=== PATIENT | male | born 1950 | race Caucasian/White ===

== ENCOUNTER 2021-03-18 08:41 | Inpatient (IN) | payer OTHER, BC, SELFPAY ==
[~2021-03-18] VITALS: Ht 177.8 cm; Wt 65.8 kg
[2021-03-18 08:45] VITALS: BP 140/82
[2021-03-18] MEDS ORDERED: NACL 0.9% 1,000 ML IV ONE (08:50)
[2021-03-18] MEDS ORDERED: KETOROLAC 30 MG/ML VIAL IVP ONE (08:50)
[2021-03-18] MEDS ORDERED: MORPHINE SULFATE 4 MG/ML SYR IVP ONE (09:15)
[2021-03-18 10:07] LABS: BASOPHILS % (AUTO) 0.1 % (0.0-2.0); EOSINOPHILS % (AUTO) 0.2 % (0.0-4.0); HEMATOCRIT 27.6 % (36-52); HEMOGLOBIN 9.2 g/dL (12.0-18.0); LYMPHOCYTES # (AUTO) 0.4 K/uL (2.0-11.5); LYMPHOCYTES % (AUTO) 5.1 % (20.5-51.1); MEAN CORPUSCULAR HEMOGLOBIN 27 pg (27-31); MEAN CORPUSCULAR HGB CONC 33 g/dL (33-37); MEAN CORPUSCULAR VOLUME 80.5 fL (80-94); MONOCYTES # (AUTO) 0.7 K/uL (0.8-1.0); MONOCYTES % (AUTO) 7.9 % (1.7-9.3); NEUTROPHILS # (AUTO) 7.3 K/uL (1.8-7.7); NEUTROPHILS % (AUTO) 86.7 % (42.2-75.2); PLATELET COUNT (AUTO) 245 K/uL (140-450); RED BLOOD CELL COUNT(AUTO) 3.43 MIL/uL (4.20-6.10); RED CELL DISTRIBUTION WIDTH 15.9 % (11.6-13.7); WHITE BLOOD COUNT (AUTO) 8.4 K/uL (4.8-10.8)
[2021-03-18 10:16] LABS: ANION GAP 13.3 (8-16); CARBON DIOXIDE 28.6 mmol/L (21-32); CHLORIDE 99 mmol/L (98-107); CREATININE 0.8 mg/dL (0.6-1.3); GLUCOSE 98 mg/dL (74-106); POTASSIUM 3.9 mmol/L (3.5-5.1); SODIUM SERUM 137 mmol/L (136-145); UREA NITROGEN, BLOOD 17 mg/dL (7-18)
[2021-03-18 10:30] LABS: MAGNESIUM 1.8 mg/dL (1.8-2.4); PHOSPHORUS 3.9 mg/dL (2.5-4.9); THYROID STIMULATING HORMONE 1.53 uIU/mL (0.34-3.74)
[2021-03-18] MEDS ORDERED: SERT100T PO (11:29)
[2021-03-18] MEDS ORDERED: TAMS0.4C96 PO (11:29)
[2021-03-18] MEDS ORDERED: cefTRIAXone 2,000 MG in DEXTROSE 5% 100 ML IV ONE (12:55)
[2021-03-18] MEDS ORDERED: cefTRIAXone 2,000 MG VIAL ONE (12:58)
[2021-03-18] MEDS ORDERED: MAG SULF 2000 MG/WATER PREMIX 50 ML IV PRN (14:00)
[2021-03-18] MEDS ORDERED: POTASSIUM CHLORIDE 10 MEQ TABER PO PRN (14:00)
[2021-03-18] MEDS ORDERED: ZOLPIDEM 5 MG TAB PO PRN (14:00)
[2021-03-18] MEDS ORDERED: DOCUSATE SODIUM 100 MG GELCAP PO PRN (14:00)
[2021-03-18] MEDS ORDERED: ONDANSETRON 4 MG/2 ML VIAL IVP PRN (14:00)
[2021-03-18] MEDS ORDERED: SODIUM PHOS / POTASSIUM PHOS 1 PKT PDR PO PRN (14:00)
[2021-03-18] MEDS ORDERED: HYDROcodone/APAP 5/325 MG 1 TAB TAB PO PRN (14:00)
[2021-03-18] MEDS: NACL 0.9% 1,000 ML IV SCH (14:40)
[2021-03-18 15:52] LABS: APPEARANCE,URINE CLEAR (CLEAR); BILIRUBIN,URINE 1+ (NEGATIVE); BLOOD, URINE TRACE-I (NEGATIVE); COLOR,URINE YELLOW (YELLOW); LEUKOCYTE ESTERASE ,URINE NEGATIVE (NEGATIVE); NITRITE, URINE NEGATIVE (NEGATIVE); UGLUCOSE NEGATIVE (NEGATIVE)
[2021-03-18 16:09] LABS: THYROID STIMULATING HORMONE 1.87 uIU/mL (0.34-3.74)
[2021-03-18 16:26] LABS: RBC,URINE 0-5 /HPF (0-5); WBC,URINE NONE SEEN /HPF (0-5)
[2021-03-18] MEDS: MORPHINE SULFATE 2 MG/ML SYR IVP PRN (19:15)
[2021-03-18] MEDS: SERTRALINE 50 MG TAB PO SCH (21:27)
[2021-03-18 22:20] VITALS: BP 131/67
[2021-03-19] MEDS: MORPHINE SULFATE 2 MG/ML SYR IVP PRN ×2 (00:23→16:42)
[2021-03-19] MEDS: NACL 0.9% 1,000 ML IV SCH ×3 (00:24→20:00)
[2021-03-19 04:00] VITALS: BP 116/66
[2021-03-19 06:14] LABS: BASOPHILS % (AUTO) 0.1 % (0.0-2.0); EOSINOPHILS # (AUTO) 0.1 K/uL (0-0.4); EOSINOPHILS % (AUTO) 0.8 % (0.0-4.0); HEMATOCRIT 23.9 % (36-52); LYMPHOCYTES # (AUTO) 0.5 K/uL (2.0-11.5); LYMPHOCYTES % (AUTO) 8.3 % (20.5-51.1); MEAN CORPUSCULAR HEMOGLOBIN 27 pg (27-31); MEAN CORPUSCULAR HGB CONC 34 g/dL (33-37); MEAN CORPUSCULAR VOLUME 80.7 fL (80-94); MONOCYTES # (AUTO) 0.6 K/uL (0.8-1.0); MONOCYTES % (AUTO) 8.7 % (1.7-9.3); NEUTROPHILS # (AUTO) 5.4 K/uL (1.8-7.7); NEUTROPHILS % (AUTO) 82.1 % (42.2-75.2); PLATELET COUNT (AUTO) 221 K/uL (140-450); RED BLOOD CELL COUNT(AUTO) 2.96 MIL/uL (4.20-6.10); RED CELL DISTRIBUTION WIDTH 15.7 % (11.6-13.7); WHITE BLOOD COUNT (AUTO) 6.6 K/uL (4.8-10.8)
[2021-03-19 06:32] LABS: ALBUMIN 2.2 g/dL (3.4-5.0); ASPARTATE AMINOTRANSFERASE 57 U/L (15-37); CARBON DIOXIDE 27.7 mmol/L (21-32); CHLORIDE 104 mmol/L (98-107); CREATININE 0.7 mg/dL (0.6-1.3); GLUCOSE 109 mg/dL (74-106); MAGNESIUM 1.6 mg/dL (1.8-2.4); POTASSIUM 3.7 mmol/L (3.5-5.1); SODIUM SERUM 139 mmol/L (136-145); TOTAL BILIRUBIN 0.4 mg/dL (0.0-1.0); UREA NITROGEN, BLOOD 15 mg/dL (7-18)
[2021-03-19 08:00] VITALS: BP 121/80
[2021-03-19] MEDS: TAMSULOSIN 0.4 MG CAP PO SCH (10:37)
[2021-03-19 16:00] VITALS: BP 108/68
[2021-03-19] MEDS: SERTRALINE 50 MG TAB PO SCH (21:44)
[2021-03-20] MEDS: MORPHINE SULFATE 2 MG/ML SYR IVP PRN (03:20)
[2021-03-20 04:00] VITALS: BP 115/70
[2021-03-20] MEDS: NACL 0.9% 1,000 ML IV SCH ×3 (06:00→21:20)
[2021-03-20 06:17] LABS: BASOPHILS % (AUTO) 0.2 % (0.0-2.0); EOSINOPHILS # (AUTO) 0.2 K/uL (0-0.4); EOSINOPHILS % (AUTO) 2.6 % (0.0-4.0); HEMOGLOBIN 8.8 g/dL (12.0-18.0); LYMPHOCYTES # (AUTO) 1.2 K/uL (2.0-11.5); LYMPHOCYTES % (AUTO) 17.8 % (20.5-51.1); MEAN CORPUSCULAR HEMOGLOBIN 27 pg (27-31); MEAN CORPUSCULAR HGB CONC 33 g/dL (33-37); MEAN CORPUSCULAR VOLUME 81.7 fL (80-94); MONOCYTES # (AUTO) 0.7 K/uL (0.8-1.0); MONOCYTES % (AUTO) 10.4 % (1.7-9.3); NEUTROPHILS # (AUTO) 4.5 K/uL (1.8-7.7); PLATELET COUNT (AUTO) 263 K/uL (140-450); RED CELL DISTRIBUTION WIDTH 15.6 % (11.6-13.7); WHITE BLOOD COUNT (AUTO) 6.5 K/uL (4.8-10.8)
[2021-03-20 06:47] LABS: ALBUMIN 2.5 g/dL (3.4-5.0); ANION GAP 8.9 (8-16); ASPARTATE AMINOTRANSFERASE 39 U/L (15-37); CARBON DIOXIDE 29.6 mmol/L (21-32); CHLORIDE 101 mmol/L (98-107); CREATININE 0.9 mg/dL (0.6-1.3); GLUCOSE 122 mg/dL (74-106); MAGNESIUM 1.6 mg/dL (1.8-2.4); POTASSIUM 3.5 mmol/L (3.5-5.1); SODIUM SERUM 136 mmol/L (136-145); TOTAL BILIRUBIN 0.4 mg/dL (0.0-1.0); UREA NITROGEN, BLOOD 13 mg/dL (7-18)
[2021-03-20] MEDS: TAMSULOSIN 0.4 MG CAP PO SCH (08:36)
[2021-03-20] MEDS: ACETAMINOPHEN 325 MG TAB PO PRN ×2 (10:43→18:05)
[2021-03-20 12:00] VITALS: BP 129/73
[2021-03-20 20:00] VITALS: BP 125/68
[2021-03-20] MEDS: SERTRALINE 50 MG TAB PO SCH (20:17)
[2021-03-20 21:58] LABS: FOLIC ACID 11.8 ng/mL (>3.0)
[2021-03-20] MEDS ORDERED: VANCOMYCIN PER PHARMACY MC PRN (22:10)
[2021-03-21] MEDS ORDERED: VANCOMYCIN 1,000 MG VIAL ONE (00:52)
[2021-03-21] MEDS ORDERED: VANCOMYCIN 1GM/DEXT 5% PREMIX 200 ML IV SCH (01:00)
[2021-03-21] MEDS: NACL 0.9% 1,000 ML IV SCH ×3 (02:00→22:00)
[2021-03-21] MEDS: MORPHINE SULFATE 2 MG/ML SYR IVP PRN ×3 (03:28→16:16)
[2021-03-21 03:30] VITALS: BP 137/71
[2021-03-21 06:44] LABS: ALBUMIN 2.1 g/dL (3.4-5.0); ANION GAP 9.6 (8-16); ASPARTATE AMINOTRANSFERASE 26 U/L (15-37); BASOPHILS % (AUTO) 0.2 % (0.0-2.0); CARBON DIOXIDE 28.8 mmol/L (21-32); CHLORIDE 104 mmol/L (98-107); CREATININE 0.7 mg/dL (0.6-1.3); EOSINOPHILS # (AUTO) 0.2 K/uL (0-0.4); EOSINOPHILS % (AUTO) 3.5 % (0.0-4.0); GLUCOSE 121 mg/dL (74-106); HEMATOCRIT 24.2 % (36-52); HEMOGLOBIN 8.1 g/dL (12.0-18.0); LYMPHOCYTES # (AUTO) 0.5 K/uL (2.0-11.5); LYMPHOCYTES % (AUTO) 11.9 % (20.5-51.1); MAGNESIUM 1.4 mg/dL (1.8-2.4); MEAN CORPUSCULAR HEMOGLOBIN 27 pg (27-31); MEAN CORPUSCULAR HGB CONC 34 g/dL (33-37); MEAN CORPUSCULAR VOLUME 80.6 fL (80-94); MONOCYTES # (AUTO) 0.4 K/uL (0.8-1.0); MONOCYTES % (AUTO) 9.4 % (1.7-9.3); NEUTROPHILS # (AUTO) 3.4 K/uL (1.8-7.7); PLATELET COUNT (AUTO) 225 K/uL (140-450); POTASSIUM 3.4 mmol/L (3.5-5.1); RED CELL DISTRIBUTION WIDTH 15.8 % (11.6-13.7); SODIUM SERUM 139 mmol/L (136-145); TOTAL BILIRUBIN 0.3 mg/dL (0.0-1.0); UREA NITROGEN, BLOOD 13 mg/dL (7-18); WHITE BLOOD COUNT (AUTO) 4.6 K/uL (4.8-10.8)
[2021-03-21 08:00] VITALS: BP 132/71
[2021-03-21] MEDS: TAMSULOSIN 0.4 MG CAP PO SCH (09:27)
[2021-03-21 10:06] LABS: IMMUNOGLOBULIN M 58 mg/dL (15-143)
[2021-03-21 11:43] LABS: IMMUNOGLOBULIN A 51 mg/dL (70 - 400); IMMUNOGLOBULIN G 523 mg/dL (700 - 1600)
[2021-03-21] MEDS: VANCOMYCIN 1,000 MG in DEXTROSE 5% 250 ML IV SCH (14:01)
[2021-03-21 16:00] VITALS: BP 127/73
[2021-03-21] MEDS: LORazepam 2 MG/ML VIAL IM/IVP PRN (18:23)
[2021-03-21] MEDS: SERTRALINE 50 MG TAB PO SCH (20:44)
[2021-03-22] VITALS: BP 112/69
[2021-03-22] MEDS: NACL 0.9% 1,000 ML IV SCH ×2 (00:37→18:00)
[2021-03-22] MEDS: VANCOMYCIN 1,000 MG in DEXTROSE 5% 250 ML IV SCH ×2 (01:48→14:35)
[2021-03-22] MEDS: LORazepam 2 MG/ML VIAL IM/IVP PRN ×3 (03:05→18:02)
[2021-03-22 07:19] LABS: BASOPHILS % (AUTO) 0.1 % (0.0-2.0); EOSINOPHILS # (AUTO) 0.1 K/uL (0-0.4); EOSINOPHILS % (AUTO) 1.5 % (0.0-4.0); HEMATOCRIT 26.4 % (36-52); HEMOGLOBIN 8.7 g/dL (12.0-18.0); LYMPHOCYTES # (AUTO) 0.5 K/uL (2.0-11.5); LYMPHOCYTES % (AUTO) 8.6 % (20.5-51.1); MEAN CORPUSCULAR HEMOGLOBIN 27 pg (27-31); MEAN CORPUSCULAR HGB CONC 33 g/dL (33-37); MEAN CORPUSCULAR VOLUME 80.8 fL (80-94); MONOCYTES # (AUTO) 0.4 K/uL (0.8-1.0); MONOCYTES % (AUTO) 6.6 % (1.7-9.3); NEUTROPHILS # (AUTO) 5.1 K/uL (1.8-7.7); NEUTROPHILS % (AUTO) 83.2 % (42.2-75.2); PLATELET COUNT (AUTO) 261 K/uL (140-450); RED BLOOD CELL COUNT(AUTO) 3.27 MIL/uL (4.20-6.10); RED CELL DISTRIBUTION WIDTH 15.5 % (11.6-13.7); WHITE BLOOD COUNT (AUTO) 6.1 K/uL (4.8-10.8)
[2021-03-22 07:31] LABS: ALBUMIN 2.5 g/dL (3.4-5.0); ANION GAP 12.5 (8-16); ASPARTATE AMINOTRANSFERASE 24 U/L (15-37); CARBON DIOXIDE 29.4 mmol/L (21-32); CHLORIDE 102 mmol/L (98-107); CREATININE 0.7 mg/dL (0.6-1.3); GLUCOSE 123 mg/dL (74-106); MAGNESIUM 1.8 mg/dL (1.8-2.4); POTASSIUM 3.9 mmol/L (3.5-5.1); SODIUM SERUM 140 mmol/L (136-145); TOTAL BILIRUBIN 0.4 mg/dL (0.0-1.0); UREA NITROGEN, BLOOD 10 mg/dL (7-18)
[2021-03-22 08:00] VITALS: BP 130/80
[2021-03-22] MEDS: TAMSULOSIN 0.4 MG CAP PO SCH (08:48)
[2021-03-22] MEDS ORDERED: ACET-9525 PO (11:26)
[2021-03-22] MEDS ORDERED: DOCU-299 PO (11:26)
[2021-03-22] MEDS ORDERED: MORP2SOL18 IVP (11:26)
[2021-03-22] MEDS ORDERED: ROC2I IV (11:26)
[2021-03-22] MEDS ORDERED: Vancomycin Per Pharmacy MC (11:26)
[2021-03-22 16:00] VITALS: BP 136/85
== END 2021-03-22 19:45 | disposition home or self-care (01) | DRG 553 ==
LOC: MED 08:41 → MTU 13:59
PROVIDERS: ADMIT Family Medicine; ATTEND Family Medicine
DX: M16.12 Unilateral primary osteoarthritis, left hip (principal); E43 Unspecified severe protein-calorie malnutrition; G95.89 Other specified diseases of spinal cord; M54.9 Dorsalgia, unspecified; I34.1 Nonrheumatic mitral (valve) prolapse; F32.A Depression, unspecified; N20.0 Calculus of kidney; N40.0 Benign prostatic hyperplasia without lower urinary tract symptoms; D64.9 Anemia, unspecified; Z20.822 Contact with and (suspected) exposure to COVID-19; R32 Unspecified urinary incontinence; K40.90 Unilateral inguinal hernia, without obstruction or gangrene, not specified as recurrent; Z87.442 Personal history of urinary calculi
CPT/HCPCS: 36415; 71045; 72132; 80048; 80053; 80202; 81001; 82150; 82272; 82607; 82728; 82746; 83540; 83605; 83690; 83735; 84100; 84165; 84443; 84484; 85007; 85025; 85045; 85610; 85730; 86140; 86334; 87040; 87081; 87186; 92610; 93005; 96361; 96365; 96375; 97112; 97116; 97163-GP; 97530; 99285; J0696; J1885; J2060; J2270; J3370; J3475; J7060; Q0092; Q9967